=== PATIENT | female | born 1970 | race Caucasian/White ===

== ENCOUNTER → 2017-04-02 | Outpatient (CLI) | payer BC ==
[~2017-04-02] VITALS: Ht 179.1 cm; Wt 127.0 kg
[~2017-04-02] MED LIST: CRESTOR10 MG PO; LEXAPRO20 MG PO; LISINOPRIL20 MG PO; ZYRTEC10 M3 PO
== END | disposition home or self-care (01) ==
LOC: AMB 07:23
PROC: 0DBP8ZX Excision of Rectum, Via Natural or Artificial Opening Endoscopic, Diagnostic (ICD-10-PCS; principal; 2017-04-02)
DX: K57.30 Diverticulosis of large intestine without perforation or abscess without bleeding (principal); K64.8 Other hemorrhoids; K62.1 Rectal polyp; Z87.891 Personal history of nicotine dependence; Z78.9 Other specified health status; Z86.010 Personal history of colon polyps
CPT/HCPCS: 88305; 93005; J2250